=== PATIENT | female | born 2000 | race Hispanic/Latino ===

== ENCOUNTER 2023-07-27 04:23 | Emergency (ER) | payer BC, MEDICAID ==
[~2023-07-27] VITALS: Ht 154.9 cm; Wt 56.7 kg
[2023-07-27 04:52] VITALS: BP 140/69; PULSE 92; RESP 18; TEMP 97.9; O2SAT 98
[2023-07-27] MEDS ORDERED: TORADOL ONE (04:58)
[2023-07-27] MEDS: TORADOL IV STA (04:59)
[2023-07-27 05:11] LABS: BASOPHIL % 0.2 % (0.0-0.2); EOSINOPHIL # 0.1 10^3/uL (0.0-0.2); EOSINOPHIL % 0.7 % (0.0-5.0); HEMATOCRIT(ML) 42.1 % (36.0-46.0); HEMOGLOBIN 14.7 g/dL (12.0-15.0); LYMPHOCYTES # 2.09 10^3/uL1 (1.0-4.8); LYMPHOCYTES % 17.1 % (24.0-44.0); MEAN CORP HGB 31.8 pg (26-34); MEAN CORP HGB CONCENTRATION 34.9 g/dL (33-36.5); MEAN CORP VOLUME 91.1 fL (78-100); MONOCYTES # 0.5 10^3/uL (0.3-0.8); NEUTROPHIL # 9.5 10^3/uL (1.8-7.7); NEUTROPHILS % 77.9 % (41.0-85.0); PLATELET COUNT 346 10^3/uL (150-400); RED BLOOD CELL 4.62 10^6/uL (4.00-5.20); RED CELL DISTRIBUTION WIDTH 13.1 % (11.5-14.5); WHITE BLOOD CELL 12.2 10^3/uL (4.5-11.0)
[2023-07-27 05:11] LABS: BILIRUBIN,URINE NEGATIVE (NEGATIVE); LEUKOCYTE ESTERASE ,URINE NEGATIVE (NEGATIVE); NITRATE,URINE NEGATIVE (NEGATIVE); UROBILINOGEN,URINE 0.2 E.U./dL (0.2)
[2023-07-27 05:13] LABS: +ADD MANUAL DIFF(NO CHRG) NO
[2023-07-27 05:22] LABS: APPEARANCE,URINE TURBID; UA COLOR YELLOW
[2023-07-27 05:24] LABS: PROTHROMBIN PROTIME 10.1 SEC (9.7-11.6)
[2023-07-27 05:26] LABS: ALBUMIN(ML) 4.4 g/dL (3.4-5.0); ALBUMIN/GLOBULIN RATIO 1.1; ANION GAP 15.9; BUN/CREATININE RATIO 11.26 (10.0-20.0); CALCIUM 8.9 mg/dL (8.4-10.5); CARBON DIOXIDE 25.6 mmol/L (20.0-32); CREATININE SERUM 0.71 mg/dL (0.59-1.40); EST GFR, NON-AA 102.9 (>/=60); POTASSIUM 3.5 mmol/L (3.6-5.2)
[2023-07-27 06:49] VITALS: BP 114/77; PULSE 98; RESP 18; TEMP 97.9; O2SAT 98
== END 2023-07-27 06:49 | disposition home or self-care (01) ==
LOC: ER 04:23
DX: N39.0 Urinary tract infection, site not specified (principal); R10.31 Right lower quadrant pain; Z98.51 Tubal ligation status
CPT/HCPCS: 99284; 74177; 96374; 80053; 85025; 36415; 81001; 81025; 85610; 85730; J1885; Q9965